=== PATIENT | female | born 1965 | race American Indian/Alaskan Native ===

== ENCOUNTER 2016-06-02 14:08 | Emergency (ER) | payer OTHER ==
[2016-06-02 14:08] VITALS: BMI 27.6
--- NOTE | 2016-06-02 14:57 | ED PDOC ---
Arrival/HPI - General Historian: Patient - History of Present Illness Time/Duration: 1-3 hours Context: Other (mall) <Meet Han - Last Filed: 06/02/16 18:06> <Helga Hancock - Last Filed: 06/02/16 18:13> - General Time Seen by Provider: 06/02/16 14:39 - History of Present Illness Narrative History of Present Illness (Text): 06/02/16 14:57 This 50 yo female with psh gastric sleeve, presents to this ED c/o light headedness, blurred vision x 3 hours ago. Light headedness lasted for about 1 hour, and it improved after drinking a sweet beverage. Blurred vision lasted for about a minute. Patient noted feeling same symptoms last week, in which she stated she fainted. Patient feels asymptomatic upon entering emergency department. Patient denies ARROYO, neck pain, fever, URI symptoms, urinary symptoms , sob, cp, palpitation, weakness, paresthesias, dysarthria, diplopia, dysphagia , n/v, cms, or abnormal gait. (Meet Han) Past Medical History - Provider Review Nursing Documentation Reviewed: Yes - Infectious Disease Hx of Infectious Diseases: None - Tetanus Immunization Tetanus Immunization: Unknown - Past Medical History Past Medical History: No Previous - Cardiac Hx Cardiac Disorders: No - Pulmonary Hx Respiratory Disorders: No - Neurological Hx Neurological Disorder: No - HEENT Hx HEENT Disorder: No - Renal Hx Renal Disorder: No - Endocrine/Metabolic Hx Endocrine Disorders: No - Hematological/Oncological Hx Blood Disorders: No - Integumentary Hx Dermatological Disorder: No - Musculoskeletal/Rheumatological Hx Musculoskeletal Disorders: No - Gastrointestinal Hx Gastrointestinal Disorders: Yes Other/Comment: gastric sleeve - Genitourinary/Gynecological Hx Genitourinary Disorders: No - Psychiatric Hx Psychophysiologic Disorder: No Hx Substance Use: No - Surgical History Hx Gastric Bypass Surgery: Yes (gastric sleeve) Hx Hysterectomy: Yes Hx Thyroidectomy: Yes (partial) Other/Comment: hernia - Anesthesia Hx Anesthesia: Yes Hx Anesthesia Reactions: No Hx Malignant Hyperthermia: No - Suicidal Assessment Feels Threatened In Home Enviroment: No <Meet Han - Last Filed: 06/02/16 18:06> Family/Social History - Physician Review Nursing Documentation Reviewed: Yes Family/Social History: No Known Family HX Smoking Status: Never Smoked Hx Alcohol Use: No Hx Substance Use: No Hx Substance Use Treatment: No <Meet Han P - Last Filed: 06/02/16 18:06> Allergies/Home Meds <Meet Han P - Last Filed: 06/02/16 18:06> <Helga Hancock - Last Filed: 06/02/16 18:13> Allergies/Adverse Reactions: Allergies No Known Allergies Allergy (Verified 06/02/16 15:08) Home Medications: Home Meds Medication Instructions Recorded Confirmed No Known Home Med 06/02/16 06/02/16 Review of Systems - Review of Systems Constitutional: Normal. absent: Fatigue, Weight Change, Fevers Eyes: Normal ENT: Normal. absent: Sore Throat Respiratory: Normal. absent: SOB, Cough, Sputum, Wheezing Cardiovascular: Normal. absent: Chest Pain, Palpitations Gastrointestinal: Normal. absent: Abdominal Pain, Nausea Genitourinary Female: Normal. absent: Dysuria, Frequency, Hematuria, Vaginal Bleeding, Vaginal Discharge Musculoskeletal: Normal. absent: Back Pain, Neck Pain Skin: Normal. absent: Other Neurological: Dizziness. absent: Headache, Focal Weakness, Gait Changes, Speech Changes, Facial Droop, Disequilibrium, Seizure Endocrine: Normal Hemo/Lymphatic: Normal Psychiatric: Normal <Meet Han P - Last Filed: 06/02/16 18:06> Physical Exam Temperature: Afebrile Blood Pressure: Normal Pulse: Regular Respiratory Rate: Normal Appearance: Positive for: Well-Appearing, Non-Toxic, Comfortable Pain Distress: None Mental Status: Positive for: Alert and Oriented X 3 - Systems Exam Head: Present: Atraumatic, Normocephalic Pupils: Present: PERRL Extroacular Muscles: Present: EOMI Conjunctiva: Present: Normal Mouth: Present: Moist Mucous Membranes Neck: Present: Normal Range of Motion Respiratory/Chest: Present: Clear to Auscultation, Good Air Exchange. No: Respiratory Distress, Accessory Muscle Use Cardiovascular: Present: Regular Rate and Rhythm, Normal S1, S2. No: Murmurs Abdomen: Present: Normal Bowel Sounds. No: Tenderness, Distention, Peritoneal Signs Back: Present: Normal Inspection Upper Extremity: Present: Normal Inspection, Normal ROM, NORMAL PULSES, Neurovascularly Intact, Capillary Refill < 2s. No: Cyanosis, Edema Lower Extremity: Present: Normal Inspection, NORMAL PULSES, Normal ROM, Neurovascularly Intact, Capillary Refill < 2 s. No: Edema, CALF TENDERNESS, Gricelda's Sign, Tenderness, Erythema, Temperature Abnormalties Neurological: Present: GCS=15, CN II-XII Intact, Speech Normal, Motor Func Grossly Intact, Normal Sensory Function, Normal Cerebellar Funct, Gait Normal, Memory Normal, Other (No neuro focal deficits. ) Skin: Present: Warm, Dry, Normal Color. No: Rashes Psychiatric: Present: Alert, Oriented x 3, Normal Insight, Normal Concentration <Meet Han P - Last Filed: 06/02/16 18:06> Vital Signs Temp Pulse Resp BP Pulse Ox 06/02/16 17:00 68 18 148/69 100 06/02/16 15:15 98.4 F 66 18 150/78 100 Medical Decision Making Re-evaluation Time: 17:20 Reassessment Condition: Re-examined, Improved - Lab Interpretations I have reviewed the lab results: Yes Interpretation: No clinic. lab abnormalty - EKG Interpretation Interpreted by ED Physician: Yes (NSR @ 68 bpm. Normal interval. No ST changes ) Type: 12 lead EKG Comparison: No previous EKG avail. <Meet Han - Last Filed: 06/02/16 18:06> <Helga Hancock - Last Filed: 06/02/16 18:13> ED Course and Treatment: 06/02/16 17:19 Re-evaluation. Patient feels well. Discussed results and plan with patient who expresses understanding. All questions answered and there is agreement with the plan to discharge home with instructions. Patient stable for discharge. Return if symptoms persist or worsen. 06/02/16 18:06 Dr. Hancock re-examine patient , and he agrees with plan to d/c patient home and to f/u PMD on Saturday. (Meet Han) 06/02/16 18:12 Patient with dizzy with nonfocal symptoms earlier for a few seconds with normal neuro exam, including normal cerebellar, and normal ekg and labs and imaging - patient asymptomatic upon arrival here in the ED. She has a pmd and says she can follow up; she was instructed to f/u with pmd hua. (Helga Hancock) - Lab Interpretations Lab Results: 06/02/16 15:55 06/02/16 15:55 Lab Results 06/02/16 17:00: Urine Opiates Screen Negative, Urine Methadone Screen Negative, Ur Barbiturates Screen Negative, Ur Phencyclidine Scrn Negative, Ur Amphetamines Screen Negative, U Benzodiazepines Scrn Negative, U Oth Cocaine Metabols Negative, U Cannabinoids Screen Negative 06/02/16 16:00: Urine Color Yellow, Urine Appearance Clear, Urine pH 7.5, Ur Specific [place] 1.010, Urine Protein Negative, Urine Glucose (UA) Negative, Urine Ketones Negative, Urine Blood Negative, Urine Nitrate Negative, Urine Bilirubin Negative, Urine Urobilinogen 1.0 H, Ur Leukocyte Esterase Trace H, Urine RBC Negative, Urine WBC 0 - 2, Ur Epithelial Cells 0 - 2, Urine Bacteria Trace, Urine HCG, Qual Negative 06/02/16 15:55: WBC 5.0, RBC 4.54, Hgb 13.8, Hct 40.4, MCV 89.0, MCH 30.4, MCHC 34.2, RDW 12.8, Plt Count 233, MPV 9.0, Gran % 58.1, Lymph % (Auto) 35.1 H, [place] % (Auto) 4.8, Eos % (Auto) 1.4 L, Baso % (Auto) 0.6, Gran # 2.88, Lymph # 1.7, [place] # 0.2, Eos # 0.1, Baso # 0.03, Sodium 139, Potassium 4.4, Chloride 99 , Carbon Dioxide 30, Anion Gap 14, BUN 12, Creatinine 0.7, Est GFR ( Amer ) > 60, Est GFR (Non-Af Amer) > 60, Random Glucose 77, Calcium 9.8, Magnesium 2.2, Total Bilirubin 0.9, AST 43 H, ALT 145 H, Alkaline Phosphatase 84, Lactate Dehydrogenase 447, Total Creatine Kinase 114, Troponin I < 0.01, Total Protein 8.1, Albumin 4.4, Globulin 3.7, Albumin/Globulin Ratio 1.2 - RAD Interpretation Narrative RAD Interpretations (Text): 06/02/16 17:15 Accession No. : [id number] Patient Name / ID : ALBERT MARIN / [id number] Exam Date : 06/02/2016 16:10:30 ( Approved ) Study Comment : Sex / Age : F / 50Y Creator : Cristopher Farr Dictator : Percy Silva MD Hairspring Adjuster : Ornamental Iron Worker Apprentice : Percy Silva MD Approver2 : Report Date : 06/02/2016 16:20:12 My Comment : PROCEDURE: CT HEAD WITHOUT CONTRAST. HISTORY: dizziness COMPARISON: None available. TECHNIQUE: Axial computed tomography images were obtained through the head/brain without intravenous contrast. Radiation dose: Total exam DLP = mGy-cm. FINDINGS: HEMORRHAGE: No intracranial hemorrhage. BRAIN: No mass effect or edema. No atrophy or chronic microvascular ischemic changes. VENTRICLES: Unremarkable. No hydrocephalus. CALVARIUM: Unremarkable. PARANASAL SINUSES: Unremarkable as visualized. No significant inflammatory changes. MASTOID AIR CELLS: Unremarkable as visualized. No inflammatory changes. OTHER FINDINGS: None. IMPRESSION: Normal CT of the Head. 06/02/16 17:16 CXR: NAD (Meet Han) Radiology Orders: 06/02/16 15:20 CHEST PORTABLE [RAD] Stat 06/02/16 15:22 HEAD W/O CONTRAST [CT] Stat - Medication Orders Current Medication Orders: Discontinued Medications Sodium Chloride (Sodium Chloride 0.9%) 1,000 mls @ 999 mls/hr IV .Q1H1M STA Stop: 06/02/16 16:22 Last Admin: 06/02/16 16:08 Dose: 999 MLS/HR eMAR Start Stop Document 06/02/16 16:08 [email or web address] (Rec: 06/02/16 16:09 [email or web address] [facility] [id number]) Intravenous Solution Start Date 06/02/16 Start Time 16:09 End Date 06/02/16 - PA / RN MEDICATION / Resident Statement RAE has reviewed & agrees with the documentation as recorded. RAE has examined the patient and agrees with the treatment plan. <Helga Hancock - Last Filed: 06/02/16 18:13> Disposition/Present on Arrival - Present on Arrival Any Indicators Present on Arrival: No History of DVT/PE: No History of Uncontrolled Diabetes: No Urinary Catheter: No History Surgical Site Infection Following: None - Disposition Have Diagnosis and Disposition been Completed?: Yes Disposition Time: 17:21 Patient Plan: Discharge <Meet Han - Last Filed: 06/02/16 18:06> <Helga Hancock - Last Filed: 06/02/16 18:13> - Disposition Diagnosis: Lightheadedness Disposition: HOME/ ROUTINE Patient Problems: Current Active Problems Problem Status Diagnosed Lightheadedness Acute Condition: GOOD Discharge Instructions (ExitCare): Lightheadedharman (ED) Additional Instructions: Call private doctor for follow up visit in 1-2 days. Call neurologist for revaluation. Return to emergency if symptoms worsen,. Referrals: Fredy Day MD [Staff Provider] - Follow up with primary
[2016-06-02 15:17] VITALS: TEMP 98.4
[2016-06-02] MEDS ORDERED: Sodium Chloride 0.9% 1,000 ML IV STA (15:22)
[2016-06-02 15:59] LABS: ADD MANUAL DIFF? NO
[2016-06-02 16:02] LABS: BASO # 0.03 K/mm3 (0.0-2.0); BASO % 0.6 % (0.0-3.0); EOS # 0.1 (0.0-0.7); EOS % 1.4 % (1.5-5.0); GRAN # 2.88 (1.4-6.5); GRAN % 58.1 % (50.0-68.0); HEMATOCRIT 40.4 % (36.0-48.0); LYMPH # 1.7 (1.2-3.4); LYMPH % 35.1 % (22.0-35.0); MEAN CORPUSCULAR HEMOGLOBIN 30.4 pg (25.0-35.0); MEAN CORPUSCULAR HGB CONC 34.2 g/dl (31.0-37.0); MONO # 0.2 (0.1-0.6); MONO % 4.8 % (1.0-6.0); PLATELET COUNT 233 10^3/uL (120.0-450.0); RED CELL DISTRIBUTION WIDTH 12.8 % (11.5-14.5)
[2016-06-02 16:12] LABS: ALB/GLOB RATIO 1.2 (1.1-1.8); ALKALINE PHOSPHATASE 84 U/L (38-133); ALT/SGPT 145 U/L (7-56); AST/SGOT 43 U/L (15-39); BILIRUBIN,TOTAL 0.9 mg/dL (0.2-1.3); BLOOD UREA NITROGEN 12 mg/dL (7-21); CALCIUM 9.8 mg/dL (8.4-10.5); CARBON DIOXIDE 30 mmol/L (21-33); CHLORIDE 99 mmol/L (98-107); GFR AFRICAN-AMERICAN > 60; GLUCOSE,RANDOM 77 mg/dL (70-110); MAGNESIUM 2.2 mg/dL (1.7-2.2); POTASSIUM 4.4 mmol/L (3.6-5.0); SODIUM 139 mmol/L (132-148); TOTAL PROTEIN 8.1 g/dL (5.8-8.3)
[2016-06-02 16:16] LABS: PH,URINE 7.5 (4.7-8.0); URINE BILIRUBIN NEGATIVE (NEGATIVE); URINE BLOOD NEGATIVE (NEGATIVE); URINE GLUCOSE (UA) NEGATIVE (NEGATIVE); URINE KETONE NEGATIVE (NEGATIVE); URINE LEUKOCYTE ESTERASE TRACE Leu/uL (NEGATIVE); URINE PROTEIN NEGATIVE mg/dL (<30 mg/dL)
[2016-06-02 16:21] LABS: URINE APPEARANCE CLEAR (CLEAR); URINE COLOR YELLOW (YELLOW)
[2016-06-02 16:24] LABS: TROPONIN I < 0.01 ng/mL
[2016-06-02 16:36] LABS: URINE BACTERIA TRACE (NEG); URINE EPITHELIAL CELLS 0 - 2 /hpf (0-5); URINE RBC NEGATIVE /hpf (0-2); URINE WBC 0 - 2 /hpf (0-6)
--- NOTE | 2016-06-02 16:37 | CT ---
PROCEDURE: CT HEAD WITHOUT CONTRAST. HISTORY: dizziness COMPARISON: None available. TECHNIQUE: Axial computed tomography images were obtained through the head/brain without intravenous contrast. Radiation dose: Total exam DLP = mGy-cm. FINDINGS: HEMORRHAGE: No intracranial hemorrhage. BRAIN: No mass effect or edema. No atrophy or chronic microvascular ischemic changes. VENTRICLES: Unremarkable. No hydrocephalus. CALVARIUM: Unremarkable. PARANASAL SINUSES: Unremarkable as visualized. No significant inflammatory changes. MASTOID AIR CELLS: Unremarkable as visualized. No inflammatory changes. OTHER FINDINGS: None. IMPRESSION: Normal CT of the Head.
[2016-06-02 17:10] VITALS: BP 148/69; PULSE 68
[2016-06-02 18:17] VITALS: RESP 16; O2SAT 98
--- NOTE | 2016-06-03 08:48 | CARD ---
APPROVED REPORT EKG Measurement Heart [id number] <Conclusion> Normal sinus rhythm Normal ECG
--- NOTE | 2016-06-03 08:55 | RAD ---
HISTORY: dizziness COMPARISON: No prior. FINDINGS: LUNGS: No active pulmonary disease. PLEURA: No significant pleural effusion identified, no pneumothorax apparent. CARDIOVASCULAR: Normal. OSSEOUS STRUCTURES: No significant abnormalities. VISUALIZED UPPER ABDOMEN: Normal. OTHER FINDINGS: None. IMPRESSION: No active disease.
== END 2016-06-02 18:17 | disposition home or self-care (01) ==
LOC: ED 14:08
DX: R42 Dizziness and giddiness (principal)
CPT/HCPCS: 70450; 71010; 80053; 80324; 80345; 80346; 80349; 80353; 80358; 80361; 81001; 82550; 82948; 83615; 83735; 83992; 84484; 84703; 85025; 87086; 93005; 99285; J7040